=== PATIENT | male | born 1990 | race Caucasian/White ===

== ENCOUNTER → 2020-12-06 14:24 | Outpatient (BNVA) | payer OTHER, SELFPAY | PROVIDERS: Family Provider General Practice; PCP Orthopaedic Surgery; Visit Provider Psychiatry & Neurology Psychiatry | DX: F31.81 Bipolar II disorder (principal); F12.20 Cannabis dependence, uncomplicated; F10.20 Alcohol dependence, uncomplicated; F11.21 Opioid dependence, in remission | CPT/HCPCS: 80053; 84443; 85025 ==

== ENCOUNTER → 2021-02-14 12:24 | Outpatient (BNVA) | payer OTHER, SELFPAY | PROVIDERS: Family Provider General Practice; PCP Orthopaedic Surgery; Visit Provider Psychiatry & Neurology Psychiatry | DX: F11.21 Opioid dependence, in remission (principal); F10.20 Alcohol dependence, uncomplicated; F12.20 Cannabis dependence, uncomplicated; F17.200 Nicotine dependence, unspecified, uncomplicated; F31.10 Bipolar disorder, current episode manic without psychotic features, unspecified | CPT/HCPCS: 80053; 80178; 84443 ==

== ENCOUNTER → 2021-07-26 12:59 | Outpatient (BNVA) | payer OTHER, SELFPAY | PROVIDERS: Family Provider General Practice; PCP Orthopaedic Surgery; Visit Provider Psychiatry & Neurology Psychiatry | DX: F11.21 Opioid dependence, in remission (principal); F10.20 Alcohol dependence, uncomplicated; F12.20 Cannabis dependence, uncomplicated; F31.10 Bipolar disorder, current episode manic without psychotic features, unspecified; F17.200 Nicotine dependence, unspecified, uncomplicated | CPT/HCPCS: 80053; 80178; 84443; 85025 ==

== ENCOUNTER → 2021-11-11 11:44 | Outpatient (BNVA) | payer SELFPAY | PROVIDERS: Family Provider General Practice; PCP Orthopaedic Surgery; Visit Provider Psychiatry & Neurology Psychiatry | DX: F10.20 Alcohol dependence, uncomplicated (principal); F31.10 Bipolar disorder, current episode manic without psychotic features, unspecified; F12.20 Cannabis dependence, uncomplicated; F17.200 Nicotine dependence, unspecified, uncomplicated; F11.21 Opioid dependence, in remission | CPT/HCPCS: 80053 ==

== ENCOUNTER → 2023-04-17 08:44 | Outpatient (BNVA) | payer OTHER, SELFPAY | PROVIDERS: Family Provider General Practice; PCP Orthopaedic Surgery; Visit Provider Psychiatry & Neurology Psychiatry | DX: F31.10 Bipolar disorder, current episode manic without psychotic features, unspecified (principal) | CPT/HCPCS: 80053; 80061; 80178; 83036; 84443; 85025 ==

== ENCOUNTER → 2023-10-30 14:15 | Outpatient (BNVA) | payer OTHER, SELFPAY | PROVIDERS: Family Provider General Practice; PCP Orthopaedic Surgery; Visit Provider Psychiatry & Neurology Psychiatry | DX: F31.10 Bipolar disorder, current episode manic without psychotic features, unspecified (principal); F12.20 Cannabis dependence, uncomplicated; F10.20 Alcohol dependence, uncomplicated | CPT/HCPCS: 80053; 80178; 84443 ==

== ENCOUNTER → 2025-01-27 13:35 | Outpatient (BNVA) | payer OTHER, SELFPAY | PROVIDERS: Family Provider General Practice; PCP Orthopaedic Surgery; Visit Provider Psychiatry & Neurology Psychiatry | DX: F31.10 Bipolar disorder, current episode manic without psychotic features, unspecified (principal); Z79.899 Other long term (current) drug therapy | CPT/HCPCS: 80053; 80061; 80178; 83036; 84443 ==